=== PATIENT | male | born 1955 | race Caucasian/White ===

== ENCOUNTER 2017-04-19 17:28 | Observation (INO) ==
[2017-04-19] MEDS ORDERED: Ondansetron 4 MG/2 ML VIAL IVP ONE (17:47)
[2017-04-19] MEDS ORDERED: 0.9 % Sodium Chloride 1,000 ML IVC ONE ×3 (17:47→21:43)
[2017-04-19] MEDS ORDERED: Ipratropium/Albuterol Neb 3 ML IH ONE (18:01)
--- NOTE | 2017-04-19 18:05 | Emergency Department Note ---
START Narrative - START START: I examined this patient and my medical decision-making was reviewed with the SUBSURFACE AUGMENTEE OPERATOR/PA/Advanced Practice Nurse/Resident Physician. I agree with the documented findings, disposition and treatment plan as described except to the extent set forth below. ED attending: Patient's emergency medicine resident Dr. Stone. Please see copy of this note for H&P evaluation and management and ED disposition. We both had independent [id number] time in contact with this patient. Briefly: 61-year-old male history of COPD presents with 4 days of nausea vomiting diarrhea fever unclear if he took his temperature at home. Had herniorrhaphy done by Dr. Mcgraw March 30. Abdomen is surgically benign surgical scars are well-healed and nontender. Dry oral mucosa coughing up thick white sputum that he said was occasionally brown and has decreased breath sounds on the left. Patient getting a chest x-ray EKG doing screening labs IV fluids and antibiotics. Disposition pending.
[2017-04-19 18:28] LABS: Basophils # 0.1 K/mcL (0.0-0.2); Basophils % 0.4 %; Eosinophils % 0.3 %; Hematocrit 45.7 % (37.5-50.1); Hemoglobin 15.7 g/dL (12.9-16.9); Immature Granulocytes % 0.6 % (0-4); Immature Platelets 2.2 % (1.1-6.1); Lymphocytes # 1.7 K/mcL (0.6-4.6); Lymphocytes % 12.1 %; Mean Corpuscular HGB Conc 34.4 g/dL (31.6-35.5); Mean Corpuscular Hemoglobin 30.4 pg (28.0-33.3); Mean Corpuscular Volume 88.4 fL (83.0-100.0); Mean Platelet Volume 9.7 fL (9.4-12.4); Monocytes # 0.6 K/mcL (0.0-1.3); Monocytes % 3.9 %; Neutrophils # 11.6 K/mcL (1.6-8.9); Platelet Count 278 K/mcL (140-400); Red Blood Count 5.17 M/mcL (4.19-5.50); Red Cell Distribution Width 13.2 % (11.5-14.5); Segmented Neutrophils % 82.7 %
--- NOTE | 2017-04-19 18:32 | Emergency Department Note ---
Disposition Clinical Impression: Incarcerated right inguinal hernia, Nausea vomiting and diarrhea, Thrombosed hemorrhoids Abdominal pain Qualifiers: Abdominal location: lower abdomen, unspecified Qualified Code(s): R10.30 - Lower abdominal pain, unspecified Disposition: Admitted As Inpatient Condition: Serious [facility]: [facility]Primary Care Provider[facility] - Time of Disposition: 21:03 Nausea/Vomiting/Diarrhea HPI - General Chief complaint: ED Nausea/Vomiting/Diarrhea Stated complaint: NVD x 4 days Time Seen by Provider: 04/19/17 17:41 Source: patient Limitations: no limitations Nursing Notes Reviewed: Yes Vital Signs Reviewed: Yes - History of Present Illness HPI Narrative: Patient 61-year-old male who comes in after 4 days of nausea vomiting diarrhea and abdominal pain. Patient states pain is 9/10 in his lower abdomen sharp and constant. Patient denies any radiation of pain symptoms to his groin. Patient states he has of blood in his stool but he has hemorrhoids. Patient states the bleeding is slightly different. No bloody emesis Patient has a history of bilateral inguinal hernia repair 03/28/[address] Mcgraw. Patient states he contacted Dr. Mcgraw's office today and was directed to come to the ED. - Related Data Home Medications Medication Instructions Recorded Confirmed Atenolol [Tenormin] 50 mg PO DAILY 02/03/16 04/02/17 Furosemide [Lasix] 20 mg PO DAILY 02/03/16 04/02/17 Levothyroxine [Synthroid] 25 mcg PO 0630 02/03/16 04/02/17 Lisinopril [Zestril] 20 mg PO DAILY 02/03/16 04/02/17 Melatonin 9 mg PO HS PRN 02/03/16 04/02/17 NIFEdipine [Afeditab Cr] 60 mg PO DAILY 02/03/16 04/02/17 Gabapentin [Neurontin] 400 mg PO TID 04/02/17 04/02/17 Allergies Allergy/AdvReac Type Severity Reaction Status Date / Time No Known Allergies Allergy Verified 04/19/17 17:30 All systems ED: reviewed and negative except as stated. Review of Systems: As Per HPI Constitutional: Reports: fever (Subjective). Denies: chills ENT ED: Denies: congestion Cardiovascular: Denies: chest pain, palpitations Respiratory: Denies: cough, dyspnea, wheezes Gastrointestinal: Reports: abdominal pain, nausea, vomiting, diarrhea Genitourinary: Denies: urgency, dysuria, frequency Musculoskeletal: Denies: back pain, neck pain Integumentary: Denies: rash Endocrine: Reports: fatigue Past Medical History - Past Medical History Attestation: Yes The following information was validated with the patient. Source: patient Medical history: Reports: cirrhosis, CHF, COPD, fibromyalgia, hepatitis, hyperlipidemia, hypertension, kidney stones, liver disease, seizures Surgical history: Reports: cholecystectomy Psychiatric history: Reports: bipolar, previous psychiatric hospitalization, other - Social History Smoking Status: Current every day smoker Smokeless Tobacco Status: No Alcohol use: Reports: none Drug use: Reports: opiates, marijuana, other Physical Exam Vital Signs Temperature 98.5 F 04/19/17 17:30 Pulse Rate 77 04/19/17 17:30 Respiratory Rate 20 04/19/17 17:30 Blood Pressure 191/107 04/19/17 17:30 O2 Sat by Pulse Oximetry 100 04/19/17 17:30 Temperature 98.5 F 04/19/17 17:30 Pulse Rate 62 04/19/17 19:48 Respiratory Rate 18 04/19/17 19:48 Blood Pressure 175/100 04/19/17 19:48 O2 Sat by Pulse Oximetry 99 04/19/17 19:48 Oxygen Delivery Oxygen Delivery Room Air Patient 61-year-old male who is alert and oriented 3 and in no acute distress. Patient looks uncomfortable secondary to abdominal discomfort. Patient is currently afebrile here but is hypertensive at 191/107. - General Limitations: no limitations General appearance: alert - Head Head exam: atraumatic, normocephalic, normal inspection - Eye Eye exam: Present: normal appearance, PERRL, EOMI - ENT ENT exam: normal exam, mucous membranes dry - Neck Neck exam: Present: normal inspection, full ROM, trachea midline - Chest Chest inspection: Present: normal inspection, symmetric chest wall rise - Respiratory Respiratory exam: Present: other (rales right side lower lung field). Absent: wheezes - Cardiovascular Cardiovascular exam: Present: regular rate, normal rhythm, normal heart sounds - Abdominal Exam Abdominal exam: Present: soft, tenderness, normal bowel sounds. Absent: distention, guarding, rebound, rigidity Abdominal tenderness: Present: RLQ, LLQ, suprapubic - Rectal Exam Rectal exam: Present: heme (+) stool, hemorrhoids (Thrombosed), tenderness - Extremities Exam Extremities exam: Present: normal inspection, full ROM, normal capillary refill. Absent: tenderness, pedal edema, joint swelling, calf tenderness Course - Consultations Consultation #1: Dr. Hennessy of general surgery was consulted and appraise the patient's condition. He states he will look at the CT scan himself and come in and see the patient here in the ED. Time: 08:00 Consultation #2: Dr. Hennessy of Gen. surgery's accepted patient for admission Time: 20:53 Vital Signs Temperature 98.5 F 04/19/17 17:30 Pulse Rate 77 04/19/17 17:30 Respiratory Rate 20 04/19/17 17:30 Blood Pressure 191/107 04/19/17 17:30 O2 Sat by Pulse Oximetry 100 04/19/17 17:30 Temperature 98.5 F 04/19/17 17:30 Pulse Rate 77 04/19/17 17:30 Respiratory Rate 20 04/19/17 17:30 Blood Pressure 191/107 04/19/17 17:30 O2 Sat by Pulse Oximetry 99 04/19/17 17:39 Oxygen Delivery Oxygen Delivery Room Air Nausea/Vomiting/Diarrhea - MDM Narrative Medical decision making narrative: Patient presents with abdominal pain, nausea vomiting diarrhea with hx of bilateral inguinal hernia repair [address] Mcgraw general surgery. Patient's workup labs showed elevated white count with left shift and a KI. Patient's urine appears dirty. Possible UTI. While awaiting CT scan abdomen and pelvis patient was given pain medication. The patient's patient's symptoms were alleviated some. Patient's pain medications did re-dose from 50 g of fentanyl to 1 mg of Dilaudid. Patient's CT abdomen shows: Chest X-Ray 04/19/17 17:47 IMPRESSION: No acute cardiopulmonary findings. D/ / Kirill Simmons MD / Kirill Simmons MD Interpreting Provider: Kirill Simmons MD Abdomen/Pelvis CT 04/19/17 19:01 IMPRESSION: The base of the cecum appears distorted and partially located within a right inguinal hernia; there are some adjacent inflammatory changes. Correlation for entrapment is recommended. Cirrhotic morphology of the liver as well as abdominal and pelvic ascites. D/ / Lissa Ricks Cha, MD / Lissa Ricks Cha, MD Interpreting Provider: Lissa Ricks Cha, MD Patient has thrombosed hemorrhoids on rectal exam and Hemoccult positive stool. Most likely secondary to hemorrhoids. Gen. surgery was consulted and currently awaiting the recommendations from Dr. Hennessy of general surgery. Dr. Hennessy of Gen. surgery's accepted patient for admission this 80 will monitor patient in serial abdominal exams. Lactic acid is been ordered and the patient will receive more IV hydration. Patient is to be kept nothing by mouth. - Lab Data Lab results reviewed: Yes I reviewed the patient's lab results. Lab results narrative: Short CBC 04/19/17 Range/Units 18:14 WBC 14.0 H (4.3-11.1) K/mcL Hgb 15.7 (12.9-16.9) g/dL Hct 45.7 (37.5-50.1) % Plt Count 278 (140-400) K/mcL Neutrophils # 11.6 H (1.6-8.9) K/mcL BMP 04/19/17 Range/Units 18:14 Sodium 144 (136-145) mEq/L Potassium 3.8 (3.5-4.5) mEq/L Chloride 103 (98-109) mEq/L Carbon Dioxide 28 (19-29) mEq/L BUN 21 (8-26) mg/dL Creatinine 1.41 H (0.72-1.25) mg/dL Glucose 154 H (70-99) mg/dL Calcium 11.2 H (8.6-10.8) mg/dL Cardiac Enzymes 04/19/17 Range/Units 18:14 Troponin I 0.00 (0-0.03) ng/mL Urine 04/19/17 Range/Units 17:20 Urine Color Dark Yellow (Yellow) Urine Clarity Cloudy A (Clear) Urine pH 7.5 (5.0-8.0) pH Units Ur Specific [place] 1.029 H (1.010-1.025) Urine Protein 100 H (Neg-Trace) mg/dL Urine Glucose (UA) Normal (Normal) mg/dL - Radiology Data Radiology results reviewed: Yes I reviewed the patient's radiology results. Chest X-Ray 04/19/17 17:47 IMPRESSION: No acute cardiopulmonary findings. D/ / Kirill Simmons MD / Kirill Simmons MD Interpreting Provider: Kirill Simmons MD Abdomen/Pelvis CT 04/19/17 19:01
[2017-04-19 18:42] LABS: BUN/Creatinine Ratio 15 (6-26); Blood Urea Nitrogen 21 mg/dL (8-26); Calcium 11.2 mg/dL (8.6-10.8); Carbon Dioxide 28 mEq/L (19-29); Chloride 103 mEq/L (98-109); Glucose 154 mg/dL (70-99); Lipase 15 Units/L (8-78); Osmolality,Calculated 304 (280-300); Potassium 3.8 mEq/L (3.5-4.5); Sodium 144 mEq/L (136-145); eGFR For African Americans > 60 (> 60); eGFR For Non-African Americans 51 (> 60)
[2017-04-19 18:52] LABS: Bilirubin,Urine Small (Negative); Blood,Urine Negative (Negative); Clarity,Urine Cloudy (Clear); Color,Urine Dark Yellow (Yellow); Glucose,Urine (UA) Normal (Normal); Ketones,Urine 15 mg/dL (Negative); Leukocyte Esterase,Urine Small (Negative); Nitrite,Urine Negative (Negative); PH,Urine 7.5 pH Units (5.0-8.0); Protein,Urine 100 mg/dL (Neg-Trace); Specific Gravity,Urine 1.029 (1.010-1.025); Urobilinogen,Urine Normal (Normal)
[2017-04-19 18:54] LABS: Squamous Epithelial Cell,Urine Many per lpf (None-Few)
[2017-04-19] MEDS ORDERED: *HR* FentaNYL (PF) 100 MCG/2 ML VIAL IVP ONE ×2 (19:02→19:04)
[2017-04-19] MEDS ORDERED: Ondansetron 4 MG/2 ML VIAL IVP STA (19:04)
[2017-04-19 19:11] LABS: Hyaline Casts,Urine Many per lpf (None-Few); Mucus,Urine Many (Few)
[2017-04-19 19:12] LABS: Bacteria,Urine Moderate per hpf (None-Few)
[2017-04-19] MEDS ORDERED: *HR* HYDROmorphone (PF) 1 MG/ML SYRINGE IVP ONE ×2 (20:10→21:02)
[2017-04-19] MEDS ORDERED: *HR* HYDROmorphone (PF) 1 MG/ML SYRINGE IVP PRN (21:43)
[2017-04-19] MEDS ORDERED: Ondansetron 4 MG/2 ML VIAL IVP PRN (21:43)
[2017-04-19] MEDS ORDERED: 0.9 % Sodium Chloride 1,000 ML IVC SCH (21:45)
--- NOTE | 2017-04-19 22:00 | General Surg History&Physical ---
Date of Encounter: 04/19/17 Time of Encounter: 21:57 Assessment and Plan (1) Nausea vomiting and diarrhea Current Visit: Yes Status: Acute 61M s/p bilateral open inguinal hernia repair with abdominal pain associated nausea and vomiting; no evidence of obstruction or ischemia or inflammatory changes; unlikely has actue surgical problem - NPO: initial diet pending exam in AM - IVF - pain control; - dvt proph - vitals/I&os q4 - serial abdominal exams The assessment and plan as outlined above was discussed with the patient and/or family members who expressed understanding and agreement. All questions were answered. (2) Dehydration Current Visit: Yes Status: Acute likely due to vomiting and poor PO intake; - NPO IVF' serial exams repeat labs in AM The assessment and plan as outlined above was discussed with the patient and/or family members who expressed understanding and agreement. All questions were answered. (3) Acute kidney failure Current Visit: Yes Status: Acute see above The assessment and plan as outlined above was discussed with the patient and/or family members who expressed understanding and agreement. All questions were answered. Qualifiers: Acute renal failure type: unspecified Qualified Code(s): N17.9 - Acute kidney failure, unspecified History of Present Illness Chief complaint: abdominal pain, vomiting HPI: Mr. uGstafson is a 61 year old male with 3 days of worsening abdominal pain. The pain is suprapubic with associated nausea and vomiting, non bloody, non bilious. No reports of fevers or chills. The patient states the pain is non radiating. With no identifiable alleviating or exacerbating factors. Due to the severity of the abdominal pain, the patient was advised to come to the ED for evaluation. Furthermore, the patient states he also had blood stools. He states that he does have hemorrhoids. Of note the patient is approximately 8 days post op from bilateral open inguinal hernia repairs Past Med Surg Social Fam HX - Past Medical History Medical history: cirrhosis, CHF, COPD, fibromyalgia, hepatitis, hyperlipidemia, hypertension, kidney stones, liver disease, seizures Psychiatric history: bipolar, previous psychiatric hospitalization, other - Past Surgical History Surgical History: cholecystectomy - Social History Smoking Status: Current every day smoker Smokeless Tobacco Status: No Alcohol use: none Drug use: opiates, marijuana, other - Family History Father Living Status: Still Living Hx Family Endocrine Disorder: Yes (DM) Medications and Allergies Atenolol [Tenormin] 50 mg PO DAILY 02/03/16 [History] Furosemide [Lasix] 20 mg PO DAILY 02/03/16 [History] Levothyroxine [[place]th[place] [address]/03/16 [History] Lisinopril [Zestril] 20 mg PO DAILY 02/03/16 [History] Melatonin 9 mg PO HS PRN 02/03/16 [History] NIFEdipine [Afeditab Cr] 60 mg PO DAILY 02/03/16 [History] Gabapentin [Neurontin] 400 mg PO TID 04/02/17 [History] 3 Allergy/AdvReac Type Severity Reaction Status Date / Time No Known Allergies Allergy Verified 04/19/17 17:30 Review of Systems All systems PM: A 10-system review of systems was performed and is negative for pertinent findings except as documented above in the HPI. General Surgery Exam Initial Vital Signs Temp Pulse Resp BP Pulse Ox 98.5 F 77 20 191/107 100 04/19/17 17:30 04/19/17 17:30 04/19/17 17:30 04/19/17 17:30 04/19/17 17:30 - General physical appearance well developed, well nourished, no distress - Eyes other (no slceral icterus) - ENT dry mucosa, atraumatic, normocephalic - Respiratory normal expansion, normal respiratory effort, clear to auscultation - Cardiovascular Cardiovascular exam: Present: RRR - Abdomen Abdomen general surgery: Present: soft, tender (non distended, non peritoneal; minimally tender suprapubically, or any other quadrant) Hernia: Present: none (non inguinal, umbilical hernias appreciated) - Incision Incision: Present: clean and dry, intact - Genitourinary Present: normal penis with no external lesions - Integumentary Integumentary general surgery: Present: warm and dry - Neurologic Present: CN 2-12 grossly intact - Psychiatric Psychiatric general surgery: Present: A&Ox3 Results - Labs 04/19/17 18:14 04/19/17 18:14 Abnormal lab results WBC 14.0 K/mcL (4.3-11.1) H 04/19/17 18:14 Neutrophils # 11.6 K/mcL (1.6-8.9) H 04/19/17 18:14 Creatinine 1.41 mg/dL (0.72-1.25) H 04/19/17 18:14 Est GFR (Non-Af Amer) 51 (> 60) L 04/19/17 18:14 Glucose 154 mg/dL (70-99) H 04/19/17 18:14 Calculated Osmolality 304 (280-300) H 04/19/17 18:14 Calcium 11.2 mg/dL (8.6-10.8) H 04/19/17 18:14 Urine Clarity Cloudy (Clear) A 04/19/17 17:20 Ur Specific [place] 1.029 (1.010-1.025) H 04/19/17 17:20 Urine Protein 100 mg/dL (Neg-Trace) H 04/19/17 17:20 Urine Ketones 15 mg/dL (Negative) H 04/19/17 17:20 Urine Bilirubin Small (Negative) H 04/19/17 17:20 Ur Leukocyte Esterase Small (Negative) H 04/19/17 17:20 Urine Microscopic RBC 3-5 per hpf (0-3) H 04/19/17 17:20 Urine Microscopic WBC 3-5 per hpf (0-3) H 04/19/17 17:20 Ur Squamous Epith Cells Many per lpf (None-Few) H 04/19/17 17:20 Urine Bacteria Moderate per hpf (None-Few) H 04/19/17 17:20 Hyaline Casts Many per lpf (None-Few) H 04/19/17 17:20 Urine Mucus Many (Few) H 04/19/17 17:20 Ur Culture Indicated? YES (NO) A 04/19/17 17:20 Stool Occult Blood Positive (Negative) A 04/19/17 Unknown All other labs normal. - Imaging CT scan - abdomen: report reviewed, image reviewed CT scan - pelvis: report reviewed, image reviewed (non contrast; no bowel dilatation; no evidence of significant inflammatory changes; no pneumotosis; no sign of obstruction; concern about entrapment of the cecum)
[2017-04-19 23:07] LABS: Magnesium 2.2 mg/dL (1.6-2.6)
[2017-04-20 04:47] LABS: Basophils % 0.3 %; Eosinophils # 0.1 K/mcL (0.0-0.6); Eosinophils % 0.8 %; Hematocrit 37.8 % (37.5-50.1); Immature Granulocytes % 0.7 % (0-4); Immature Platelets 2.5 % (1.1-6.1); Lymphocytes # 2.1 K/mcL (0.6-4.6); Lymphocytes % 15.7 %; Mean Corpuscular HGB Conc 33.9 g/dL (31.6-35.5); Mean Corpuscular Volume 91.5 fL (83.0-100.0); Mean Platelet Volume 10.2 fL (9.4-12.4); Monocytes # 0.8 K/mcL (0.0-1.3); Monocytes % 5.9 %; Neutrophils # 10.1 K/mcL (1.6-8.9); Platelet Count 178 K/mcL (140-400); Red Blood Count 4.13 M/mcL (4.19-5.50); Red Cell Distribution Width 13.4 % (11.5-14.5); Segmented Neutrophils % 76.6 %
[2017-04-20 04:48] LABS: Hemoglobin 12.8 g/dL (12.9-16.9)
[2017-04-20] MEDS ORDERED: *HR* Enoxaparin 40 MG/0.4 ML SYRINGE SQ SCH (06:00)
--- NOTE | 2017-04-20 06:08 | General Surgery Progress Note ---
Date of Encounter: 04/20/17 Time of Encounter: 06:05 - Assessment and Plan (1) Nausea vomiting and diarrhea Current Visit: Yes Status: Acute 61M s/p open b/l IHR admitted with nausea, vomiting; no evidence of obstruction or ischemia on imaging; benign abdomen on exam - cont pain control; transition to PO once diet initiated - start CLD this AM; advance as tolerated to reg diet - activity as tolerated - cont dvt prophylaxis with lovenox - follow up rest of AM labs - plan for d/c at lunch today (2) Dehydration Current Visit: Yes Status: Acute cont IVF; decrease once taking appropriate PO (3) Acute kidney failure Current Visit: Yes Status: Acute see above Qualifiers: Acute renal failure type: unspecified Qualified Code(s): N17.9 - Acute kidney failure, unspecified Subjective Patient reports: no new complaints, feels better (no acute events overnight; pain controlled; voiding on his own), pain is less Objective Vital Signs - Last 8 Hours Temp Pulse Resp BP Pulse Ox 04/20/17 04:14 98.1 F 77 15 179/88 97 04/19/17 22:44 99.3 F 75 16 158/89 97 04/19/17 22:08 18 184/100 Intake and Output 04/19/17 04/19/17 04/20/17 15:59 23:59 07:59 Intake Total 1000 / 1000 0 / 0 Output Total 200 / 200 Balance 1000 / 1000 -200 / -200 Intake: IV Fluids 1000 / 1000 0.9 % Sodium Chloride 1,000 ML 1000 / 1000 @ 3750 mls/hr IVC .Q16M ONE Rx# :[id number] Oral 0 / 0 Output: Urine 200 / 200 Other: Weight 94.801 kg 94.7 kg Blood Glucose* 111 Patient Weight 04/20/17 23:59 Weight 94.7 kg - General physical appearance well developed, well nourished, no distress - Respiratory normal expansion, normal respiratory effort, clear to auscultation - Cardiovascular Cardiovascular exam: Present: RRR - Abdomen Abdomen: Present: soft, non tender (non distended; non peritoneal) Hernia: none - Incision Incision: Present: clean and dry, intact - Neurologic CN 2-12 grossly intact - Psychiatric oriented to time, oriented to person, oriented to place - Labs 04/20/17 03:37 04/19/17 18:14 Consult Discharge Plan - Plan [facility]errals: [facility] [Primary Care Provider] -
[2017-04-20] MEDS ORDERED: D5% in 0.45% NACL w KCl 20 MEQ/1,000 ML MLS IVC SCH (07:45)
[2017-04-20] MEDS ORDERED: Ibuprofen 600 MG TABLET PO PRN (08:40)
[2017-04-20] MEDS ORDERED: Acetaminophen 325 MG TABLET PO PRN (08:40)
[2017-04-20 08:48] LABS: BUN/Creatinine Ratio 16 (6-26); Blood Urea Nitrogen 18 mg/dL (8-26); Carbon Dioxide 25 mEq/L (19-29); Chloride 113 mEq/L (98-109); Glucose 119 mg/dL (70-99); Osmolality,Calculated 301 (280-300); Potassium 3.7 mEq/L (3.5-4.5); Sodium 144 mEq/L (136-145); eGFR For African Americans > 60 (> 60); eGFR For Non-African Americans > 60 (> 60)
[2017-04-20 08:49] LABS: Calcium 8.9 mg/dL (8.6-10.8)
[2017-04-20] MEDS ORDERED: Gabapentin 400 MG CAPSULE PO SCH (09:00)
[2017-04-20] MEDS ORDERED: Lisinopril 20 MG TABLET PO SCH (09:00)
[2017-04-20] MEDS ORDERED: NIFEdipine XL (24 HR) 60 MG TAB.ER.24 PO SCH (09:00)
[2017-04-20] MEDS ORDERED: Furosemide 20 MG TABLET PO SCH (09:00)
--- NOTE | 2017-04-20 11:35 | Discharge Summary ---
<Mandi Landis - Last Filed: 04/20/17 13:24> Date of Encounter: 04/20/17 Time of Encounter: 07:00 - Discharge Diagnosis (1) Abdominal pain Priority: Primary Status: Acute Qualifiers: Abdominal location: lower abdomen, unspecified Qualified Code(s): R10.30 - Lower abdominal pain, unspecified (2) Nausea vomiting and diarrhea Priority: Secondary Status: Acute (3) Dehydration Priority: Secondary Status: Acute (4) DVT prophylaxis Priority: Secondary Status: Acute (5) Acute kidney failure Priority: Secondary Status: Resolved Qualifiers: Acute renal failure type: unspecified Qualified Code(s): N17.9 - Acute kidney failure, unspecified - Discharge Medications Prescriptions: Acetaminophen [Tylenol] 650 mg PO Q6HR PRN #14 tablet PRN Reason: pain Ondansetron HCl [Zofran] 4 mg PO Q4-6H PRN #10 tablet PRN Reason: Nausea And Vomiting Home Medications: Atenolol [Tenormin] 50 mg PO DAILY 02/03/16 [History] Furosemide [Lasix] 20 mg PO DAILY 02/03/16 [History] Levothyroxine [Synthroid] 25 mcg PO 0630 02/03/16 [History] Lisinopril [Zestril] 20 mg PO DAILY 02/03/16 [History] Melatonin 9 mg PO HS PRN 02/03/16 [History] NIFEdipine [Afeditab Cr] 60 mg PO DAILY 02/03/16 [History] Gabapentin [Neurontin] 400 mg PO TID 04/02/17 [History] Acetaminophen [Tylenol] 650 mg PO Q6HR PRN #14 tablet 04/20/17 [Rx] Ondansetron HCl [Zofran] 4 mg PO Q4-6H PRN #10 tablet 04/20/17 [Rx] Allergies/Adverse Reactions: 3 Allergy/AdvReac Type Severity Reaction Status Date / Time No Known Allergies Allergy Verified 04/19/17 17:30 General Surgery Exam Initial Vital Signs Temp Pulse Resp BP Pulse Ox 98.5 F 77 20 191/107 100 04/19/17 17:30 04/19/17 17:30 04/19/17 17:30 04/19/17 17:30 04/19/17 17:30 - Additional Findings Constitutional: Alert, in no acute distress, well nourished, well developed. Head: Normocephalic, atraumatic, normal contour and symmetric, no masses, lesions or scars Heart: Normal, regular rate and rhythm, no murmurs Lungs: Clear to auscultation, no wheezes, rales, or rhonchi Abdomen: mild diffuse tendernes with palpation, inguinal hernia incisions well approximated and healing well without signs of infection, Soft, nondistended, , and no masses palpable, bowel sounds present and normal, no guarding or rigidity. Extremities: No clubbing, cyanosis, or edema, radial pulse +2/4, capillary refill <2sec. Skin: Skin warm and dry, no lesions, no rashes, no jaundice Neurologic: Cranial nerves II through XII grossly intact, no focal deficits, strength within normal limits in all extremities Psych: Cooperative with exam, good eye contact, cognitive function intact, judgment good insight good, speech clear, thought process logical, and goal directed Date of admission: 04/19/17 21:08 [facility] - Patient Status Disposition: Home, Self-Care Condition: Serious Functional capacity at discharge: independent ambulation Overall status at discharge: patient is progressing back to baseline - Discharge Instructions Instructions: Acute Abdominal Pain (DC) Follow Up With: [facility] [Primary Care Provider] - Additional Instructions: 1. Return to the ED if symptoms or new symptoms arise. 2. Follow up with her primary care physician in 1 to 2 weeks if symptoms do not completely resolve. 3. Continue to hydrate with 8oz eight times a day especially if vomiting or diarrhea returns. 4. Can eat normal food but would avoid fatty foods for the next week. - Diet and Activity Activity: increase activity as tolerated Diet: advance to your usual diet (slowly advance, avoid fatty foods for the next week. ) - Hospital Course Hospital course: Mr. Gustafson is a 61 year old male who had a recent bilateral inguinal hernia repair 03/28/[address] Mcgraw and presented with nausea, vomiting, diarrhea, and diffuse abdominal pain for 4 days and was admitted to the hospital for abdominal work up, NICHELLE, and dehydration. CT showed base of the cecum appears distorted and partially located within a right inguinal hernia; there are some adjacent inflammatory changes. Patient had thrombosed hemorrhoids on rectal exam and Hemoccult positive stool. Patient was admitted to the hospital and given IV fluids, antiemetic, pain medications, and NPO diet. Patient's vitals remained stable and afebrile throughout hospital stay. Patient's BP was initially elevated but decreased with pain medications and morning BP medications. Morning of discharge, Patient's pain minimal without pain medications and had no n/v after advancing diet back to regular. Creatinine decreased significantly and NICHELLE resolved. Patient was discharged home with Zofran and Tylenol and instructed to return to the ED if symptoms return or worsen and to f/u with primary care physician in 1-2 weeks if symptoms do not resolve completely. - Time Spent with Patient Total time spent providing and/or coordinating discharge services: Labs on day of discharge: Labs from last 24 hours 04/20/17 04/20/17 04/20/17 08:09 05:43 03:37 WBC 13.2 H RBC 4.13 L Hgb 12.8 L D Hct 37.8 MCV 91.5 MCH 31.0 MCHC 33.9 RDW 13.4 Plt Count 178 MPV 10.2 Immature Gran % 0.7 Seg Neutrophils % 76.6 Lymphocytes % 15.7 Monocytes % 5.9 Eosinophils % 0.8 Basophils % 0.3 Neutrophils # 10.1 H Lymphocytes # 2.1 Monocytes # 0.8 Eosinophils # 0.1 Basophils # 0.0 Immature Plt Fraction 2.5 Sodium 144 Potassium 3.7 Chloride 113 H Carbon Dioxide 25 BUN 18 Creatinine 1.16 Est GFR ( Amer) > 60 Est GFR (Non-Af Amer) > 60 BUN/Creatinine Ratio 16 Glucose 119 H POC Glucose 111 H Calculated Osmolality 301 H Calcium 8.9 D Stool Occult Blood 04/19/17 Unknown WBC RBC Hgb Hct MCV MCH MCHC RDW Plt Count MPV Immature Gran % Seg Neutrophils % Lymphocytes % Monocytes % Eosinophils % Basophils % Neutrophils # Lymphocytes # Monocytes # Eosinophils # Basophils # Immature Plt Fraction Sodium Potassium Chloride Carbon Dioxide BUN Creatinine Est GFR ( Amer) Est GFR (Non-Af Amer) BUN/Creatinine Ratio Glucose POC Glucose Calculated Osmolality Calcium Stool Occult Blood Positive A <Navarro Hennessy - Last Filed: 04/20/17 17:05> Date of Encounter: 04/20/17 - Discharge Diagnosis (1) Nausea vomiting and diarrhea Status: Acute Comments: no episodes of nausea and vomiting while inpatient (2) Dehydration Status: Acute Comments: resolved while inpatient (3) Acute kidney failure Status: Resolved Comments: resolved while inpatient Qualifiers: Acute renal failure type: unspecified Qualified Code(s): N17.9 - Acute kidney failure, unspecified General Surgery Exam Initial Vital Signs Temp Pulse Resp BP Pulse Ox 98.5 F 77 20 191/107 100 04/19/17 17:30 10 17:30 04/19/17 17:30 04/19/17 17:30 04/19/17 17:30 - General physical appearance well developed, well nourished, no distress - Eyes other (no scleral icterus), normal ocular movement - ENT normocephalic - Neck no lymphadectomy - Respiratory normal expansion, normal respiratory effort, clear to auscultation - Cardiovascular Cardiovascular exam: Present: RRR - Abdomen Abdomen general surgery: Present: soft, non tender (non distended; non peritoneal) Hernia: Present: none - Incision Incision: Present: clean and dry, intact - Genitourinary Present: normal penis with no external lesions, testicles present - Integumentary Integumentary general surgery: Present: warm and dry - Neurologic Present: CN 2-12 grossly intact - Musculoskeletal Present: other (FROM in UE/LE B/L) - Psychiatric Psychiatric general surgery: Present: A&Ox3 Date of admission: 04/19/17 21:08 [facility] care physician: [facility] Consults: none Discharging clinician: Navarro Hennessy Anticipated date of discharge: 04/20/17 - Hospital Course Hospital course: Mr. Gustafson is a 61 year old male who is approximately 3 weeks s/p open bilateral inguinal hernia repair who presented with abdominal pain, distension, nausea and vomiting; No fevers recorded. He was brought to the hospital and a CT scan was done which did not show obstruction, ischemia, abscess or evidence of pneumatosis. There was a concern for entrapment of the cecum on CT scan, but his abdominal exam was non peritoneal and otherwise normal. He did have NICHELLE upon admisson. He was admitted for supportive care. He was kept NPO overnight and started on a regular diet the following morning. He tolerated his diet, was voiding and ambulating. His NICHELLE did resolve the following morning as evidenced by the drop in his creatinine. His pain was controlled with PO pain meds. He subsequently met discharge criteria was discharged home. Patient was discharged home with Zofran and Tylenol and instructed to return to the ED if symptoms return or worsen and to f/u with Dr. Mcgraw or his PCP should he have recurrence of his symptoms. Time spent discussing smoking cessation with patient: 3 to 10 minutes - Time Spent with Patient Total time spent providing and/or coordinating discharge services: Labs on day of discharge: Labs from last 24 hours 04/20/17 04/20/17 04/20/17 08:09 05:43 03:37 WBC 13.2 H RBC 4.13 L Hgb 12.8 L D Hct 37.8 MCV 91.5 MCH 31.0 MCHC 33.9 RDW 13.4 Plt Count 178 MPV 10.2 Immature Gran % 0.7 Seg Neutrophils % 76.6 Lymphocytes % 15.7 Monocytes % 5.9 Eosinophils % 0.8 Basophils % 0.3 Neutrophils # 10.1 H Lymphocytes # 2.1 Monocytes # 0.8 Eosinophils # 0.1 Basophils # 0.0 Immature Plt Fraction 2.5 Sodium 144 Potassium 3.7 Chloride 113 H Carbon Dioxide 25 BUN 18 Creatinine 1.16 Est GFR ( Amer) > 60 Est GFR (Non-Af Amer) > 60 BUN/Creatinine Ratio 16 Glucose 119 H POC Glucose 111 H Calculated Osmolality 301 H Calcium 8.9 D Stool Occult Blood 04/19/17 Unknown WBC RBC Hgb Hct MCV MCH MCHC RDW Plt Count MPV Immature Gran % Seg Neutrophils % Lymphocytes % Monocytes % Eosinophils % Basophils % Neutrophils # Lymphocytes # Monocytes # Eosinophils # Basophils # Immature Plt Fraction Sodium Potassium Chloride Carbon Dioxide BUN Creatinine Est GFR ( Amer) Est GFR (Non-Af Amer) BUN/Creatinine Ratio Glucose POC Glucose Calculated Osmolality Calcium Stool Occult Blood Positive A - Impressions 61M admitted for pain control and dehydration. All problems addressed and resolved prior to discharge - Attending Attestation I have personally seen and examined the patient. I have reviewed pertinent labs , imaging, progress notes, including this one. I agree with the above assessment and plan and discharge summary
[2017-04-20 13:25] VITALS: BP 159/84
[2017-04-21] MEDS ORDERED: Levothyroxine 25 MCG TABLET PO SCH (06:30)
== END 2017-04-20 14:43 | disposition home or self-care (01) | DRG 469 ==
LOC: EMEROO 17:28 → 3ANU 21:08 → INTOOBSV 21:08 → 3ANU 22:21
PROVIDERS: ADMIT Surgery; ATTEND Surgery

== ENCOUNTER 2017-04-21 14:10 | Observation (INO) ==
[2017-04-21] MEDS ORDERED: *HR* HYDROmorphone (PF) 1 MG/ML SYRINGE IVP ONE (14:32)
[2017-04-21] MEDS ORDERED: Ondansetron 4 MG/2 ML VIAL IVP ONE (14:32)
[2017-04-21] MEDS ORDERED: 0.9 % Sodium Chloride 1,000 ML IVC ONE (14:32)
[2017-04-21] MEDS ORDERED: *HR* Promethazine 25 MG/ML VIAL IVP ONE (14:40)
--- NOTE | 2017-04-21 14:42 | Emergency Department Note ---
START Narrative - START START: I examined this patient and my medical decision-making was reviewed with the emergency medicine resident. I agree with the documented findings, disposition and treatment plan as described except to the extent set forth below. Patient seen with emergency medicine resident Dr. Ascencion Whitt, Please see a copy of his note for details of the H&P, ED evaluation, management and disposition. I have independently evaluated the patient and confirmed appropriate portions of the history and physical exam. Briefly: A 61-year-old male had bilateral inguinal herniorrhaphy. Patient was noted by myself and Dr. Stone 48 hours ago at [facility]. His initial surgeon was Dr. Mcgraw. Abdominal pelvic CT without contrast at that time showed questionable cecum in the possibly strangulated in the inguinal area. Dr. Hennessy general surgeon supervisor bonding evaluated patient admitted the patient discharged yesterday returns with identical symptoms of abdominal pain and intractable nausea and vomiting. Patient has diffuse abdominal tenderness but no rebound. No distention. Trial mucosa. We consult to Dr. Hennessy. He requested abdominal pelvic CT with oral and IV contrast. Patient getting IV rehydration and analgesics anti-medics oral contrast and will then undergo CT scan. Disposition pending.
--- NOTE | 2017-04-21 14:43 | Emergency Department Note ---
Disposition Clinical Impression: Ileus Intractable nausea and vomiting Qualifiers: Vomiting type: unspecified Qualified Code(s): R11.2 - Nausea with vomiting, unspecified Disposition: Admitted As Inpatient Condition: Good Time of Disposition: 17:19 Abdominal Pain HPI - General Chief Complaint: ED Abdominal Pain Stated Complaint: abd pain Time Seen by Provider: 04/21/17 14:18 Source: patient, EMS Mode of arrival: EMS Limitations: no limitations Nursing Notes Reviewed: Yes Vital Signs Reviewed: Yes - History of Present Illness HPI Narrative: Vision presents to the ED with the chief complaint of abdominal pain and vomiting. Patient had bilateral inguinal hernia repair by Dr. Mcgraw about a week ago. Was seen and evaluated in this emergency department [address] of abdomen and pelvis showed a potential strangulate hernia. Patient was admitted to the surgical service. Patient states that they gave him pain medication and discharged home. States that since then he has had progressive worsening of his pain in his bilateral groin, slightly worse on the right. He is an intractable nausea and vomiting despite Zofran. States he had a little water this morning around 9 AM, but otherwise has had nothing to eat or drink since discharge. Said his abdominal pain is getting worse. It is a sharp, stabbing, achy pain that is worse with movement, better with nothing. States it feels similar to his previous hernia pain, only worse. No fever or chills. States that he cannot take the pain anymore. Pain Scale: 9 - Related Data Home Medications Medication Instructions Recorded Confirmed Atenolol [Tenormin] 50 mg PO DAILY 02/03/16 04/19/17 Furosemide [Lasix] 20 mg PO DAILY 02/03/16 04/19/17 Levothyroxine [Synthroid] 25 mcg PO 0630 02/03/16 04/19/17 Lisinopril [Zestril] 20 mg PO DAILY 02/03/16 04/19/17 Melatonin 9 mg PO HS PRN 02/03/16 04/19/17 NIFEdipine [Afeditab Cr] 60 mg PO DAILY 02/03/16 04/19/17 Gabapentin [Neurontin] 400 mg PO TID 04/02/17 04/19/17 Previous Rx's Medication Instructions Recorded Acetaminophen [Tylenol] 650 mg PO Q6HR PRN #14 tablet 04/20/17 Ondansetron HCl [Zofran] 4 mg PO Q4-6H PRN #10 tablet 04/20/17 Allergies Allergy/AdvReac Type Severity Reaction Status Date / Time No Known Allergies Allergy Verified 04/21/17 14:12 All systems ED: reviewed and negative except as stated. Constitutional: Denies: fever Cardiovascular: Denies: chest pain Respiratory: Denies: dyspnea Gastrointestinal: Reports: abdominal pain, nausea, vomiting. Denies: diarrhea, constipation, hematemesis, melena, hematochezia Genitourinary: Denies: dysuria Musculoskeletal: Denies: back pain Neurological: Denies: headache Abdominal Pain PMH - Past Medical History Medical history: Reports: cirrhosis, CHF, fibromyalgia, hepatitis, hypertension , kidney stones, liver disease Male Surgical History: Reports: cholecystectomy, herniorrhaphy Psychiatric history: Reports: bipolar, previous psychiatric hospitalization, other - Social History Smoking status: Current every day smoker Alcohol use: Reports: rarely Drug use: Reports: opiates, marijuana Physical Exam - General Limitations: no limitations General appearance: alert, in no apparent distress, in distress (anxious, in pain) - Head Head exam: atraumatic, normocephalic, normal inspection - Eye Eye exam: Present: normal appearance, PERRL, EOMI - ENT ENT exam: normal exam, normal oropharynx, mucous membranes dry - Neck Neck exam: Present: normal inspection, full ROM, trachea midline - Chest Chest inspection: Present: normal inspection, symmetric chest wall rise - Respiratory Respiratory exam: Present: normal lung sounds bilaterally - Cardiovascular Cardiovascular exam: Present: regular rate, normal rhythm, normal heart sounds - Abdominal Exam Abdominal exam: Present: soft, tenderness, guarding (Bilateral lower abdomen), diminished bowel sounds, incision (Patient's bilateral inguinal hernia incisions are clean, dry and intact), hernia (Patient did have a small periumbilical hernia that was reduced). Absent: Non-Tender, distention, rebound , rigidity - Male exam: Present: normal testicular lie, scrotal swelling Scrotal exam: testicular tenderness: bilateral - Extremities Exam Extremities exam: Present: normal inspection, full ROM. Absent: tenderness, pedal edema - Neurological Exam Neurological exam: Present: alert, oriented X3 - Psychiatric Psychiatric exam: Present: anxious - Skin Skin exam: Present: warm, dry, intact, normal color Course - Reevaluation(s) Reevaluation #1: CT reviewed. Spoke with surgery and. Will be down to evaluate patient. He recommends admission to the medicine service and Dr. Mcgraw will consult in the morning. - Consultations Consultation #1: Spoke with on-call surgeon, and he requested CT abdomen and pelvis with IV and oral contrast. States if necessary would need to place an NG tube has oral contrast would be necessary if he will need to plan for operative management. This is discussed with the patient is agreeable to plan. We will treat him with Phenergan as Zofran has not been working and if necessary we will place an NG tube. Time: 14:45 Vital Signs Temperature 98.4 F 04/21/17 14:15 Pulse Rate 73 04/21/17 14:15 Respiratory Rate 15 04/21/17 14:15 Blood Pressure 168/91 04/21/17 14:15 O2 Sat by Pulse Oximetry 100 04/21/17 14:15 Temperature 98.4 F 04/21/17 14:15 Pulse Rate 72 04/21/17 15:03 Respiratory Rate 16 04/21/17 14:35 Blood Pressure 166/99 04/21/17 15:03 O2 Sat by Pulse Oximetry 100 04/21/17 15:03 Oxygen Delivery Oxygen Delivery Room Air Abdominal Pain - Lab Data Result diagrams: 04/21/17 14:47 04/21/17 14:47 Lab Results 04/21/17 04/21/17 04/21/17 Range/Units 14:47 14:47 14:47 WBC 11.8 H (4.3-11.1) K/mcL RBC 5.25 (4.19-5.50) M/mcL Hgb 15.6 D (12.9-16.9) g/dL Hct 45.6 (37.5-50.1) % MCV 86.9 (83.0-100.0) fL MCH 29.7 (28.0-33.3) pg MCHC 34.2 (31.6-35.5) g/dL RDW 13.1 (11.5-14.5) % Plt Count 243 (140-400) K/mcL MPV 9.6 (9.4-12.4) fL Immature Gran % 0.6 (0-4) % Seg Neutrophils % 84.1 % Lymphocytes % 11.3 % Monocytes % 3.1 % Eosinophils % 0.4 % Basophils % 0.5 % Neutrophils # 9.9 H (1.6-8.9) K/mcL Lymphocytes # 1.3 (0.6-4.6) K/mcL Monocytes # 0.4 (0.0-1.3) K/mcL Eosinophils # 0.1 (0.0-0.6) K/mcL Basophils # 0.1 (0.0-0.2) K/mcL Sodium 141 (136-145) mEq/L Potassium 3.5 (3.5-4.5) mEq/L Chloride 106 (98-109) mEq/L Carbon Dioxide 21 (19-29) mEq/L BUN 16 (8-26) mg/dL Creatinine 1.27 H (0.72-1.25) mg/dL Est GFR ( Amer) > 60 (> 60) Est GFR (Non-Af Amer) 58 L (> 60) BUN/Creatinine Ratio 13 (6-26) Glucose 167 H (70-99) mg/dL Calculated Osmolality 297 (280-300) Lactic Acid 2.2 (0.5-2.2) mmol/L Calcium 10.5 D (8.6-10.8) mg/dL Lipase 15 (8-78) Units/L
[2017-04-21 14:54] LABS: Basophils # 0.1 K/mcL (0.0-0.2); Basophils % 0.5 %; Eosinophils # 0.1 K/mcL (0.0-0.6); Eosinophils % 0.4 %; Hematocrit 45.6 % (37.5-50.1); Immature Granulocytes % 0.6 % (0-4); Lymphocytes # 1.3 K/mcL (0.6-4.6); Lymphocytes % 11.3 %; Mean Corpuscular HGB Conc 34.2 g/dL (31.6-35.5); Mean Corpuscular Hemoglobin 29.7 pg (28.0-33.3); Mean Corpuscular Volume 86.9 fL (83.0-100.0); Mean Platelet Volume 9.6 fL (9.4-12.4); Monocytes # 0.4 K/mcL (0.0-1.3); Monocytes % 3.1 %; Neutrophils # 9.9 K/mcL (1.6-8.9); Platelet Count 243 K/mcL (140-400); Red Blood Count 5.25 M/mcL (4.19-5.50); Red Cell Distribution Width 13.1 % (11.5-14.5); Segmented Neutrophils % 84.1 %
[2017-04-21 14:55] LABS: Hemoglobin 15.6 g/dL (12.9-16.9)
[2017-04-21] MEDS ORDERED: D5% in Lactated Ringers 1,000 ML IVC ONE (15:08)
[2017-04-21 15:10] LABS: BUN/Creatinine Ratio 13 (6-26); Blood Urea Nitrogen 16 mg/dL (8-26); Carbon Dioxide 21 mEq/L (19-29); Chloride 106 mEq/L (98-109); Glucose 167 mg/dL (70-99); Lipase 15 Units/L (8-78); Osmolality,Calculated 297 (280-300); Potassium 3.5 mEq/L (3.5-4.5); Sodium 141 mEq/L (136-145); eGFR For African Americans > 60 (> 60); eGFR For Non-African Americans 58 (> 60)
[2017-04-21 15:11] LABS: Calcium 10.5 mg/dL (8.6-10.8)
[2017-04-21] MEDS ORDERED: D5% in Lactated Ringers 1,000 ML IVC SCH (15:15)
--- NOTE | 2017-04-21 17:24 | General Surgery Consult Note ---
Date of Encounter: 04/21/17 Time of Encounter: 17:22 Assessment and Plan (1) Vomiting Current Visit: Yes Status: Acute 61M with nausea, vomiting; no evidence of obstruction; - supportive care: pain control, IVF, NPO Qualifiers: Vomiting type: unspecified Vomiting Intractability: unspecified Nausea presence: with nausea Qualified Code(s): R11.2 - Nausea with vomiting, unspecified (2) Abdominal pain Current Visit: No Status: Acute non peritoneal on exam; no overlying skin changes, no evidence of hernia recurrence; CT largely unremarkable - supportive care - pain control by primary team - no acute surgery Qualifiers: Abdominal location: lower abdomen, unspecified Qualified Code(s): R10.30 - Lower abdominal pain, unspecified History of Present Illness Reason for consult: abdominal pain (with associated vomiting) History of present illness: Mr. Gustafson is a 61 year old male with 3 days of worsening abdominal pain. The pain is suprapubic with associated nausea and vomiting, non bloody, non bilious. No reports of fevers or chills. The patient states the pain is non radiating. With no identifiable alleviating or exacerbating factors. Due to the severity of the abdominal pain, the patient was advised to come to the ED for evaluation. He was discharged ~24hrs prior and presents again with similar symptoms. No reports of any sick contacts. Of note the patient is approximately 10 days post op from bilateral open inguinal hernia repairs Past Med Surg Social Fam HX - Past Medical History Medical history: cirrhosis, CHF, fibromyalgia, hepatitis, hypertension, kidney stones, liver disease Psychiatric history: bipolar, previous psychiatric hospitalization, other - Past Surgical History Surgical History: cholecystectomy - Social History Smoking Status: Current every day smoker Smokeless Tobacco Status: No Alcohol use: rarely Drug use: opiates, marijuana - Family History Father Living Status: Still Living Hx Family Cardiac Disorders: Yes (HTN) Hx Family Endocrine Disorder: Yes (DM) Medications and Allergies Atenolol [Tenormin] 50 mg PO DAILY 02/03/16 [History] Furosemide [Lasix] 20 mg PO DAILY 02/03/16 [History] Levothyroxine [Synthroid] 25 mcg PO 0630 02/03/16 [History] Lisinopril [Zestril] 20 mg PO DAILY 02/03/16 [History] Melatonin 9 mg PO HS PRN 02/03/16 [History] NIFEdipine [Afeditab Cr] 60 mg PO DAILY 02/03/16 [History] Gabapentin [Neurontin] 400 mg PO TID 04/02/17 [History] Acetaminophen [Tylenol] 650 mg PO Q6HR PRN #14 tablet 04/20/17 [Rx] Ondansetron HCl [Zofran] 4 mg PO Q4-6H PRN #10 tablet 04/20/17 [Rx] 3 Allergy/AdvReac Type Severity Reaction Status Date / Time No Known Allergies Allergy Verified 04/21/17 14:12 Review of Systems All systems PM: A 10-system review of systems was performed and is negative for pertinent findings except as documented above in the HPI. General Surgery Exam Initial Vital Signs Temp Pulse Resp BP Pulse Ox 98.4 F 73 15 168/91 100 04/21/17 14:15 04/21/17 14:15 04/21/17 14:15 04/21/17 14:15 04/21/17 14:15 - General physical appearance well developed, well nourished, no distress - ENT normocephalic - Neck no lymphadectomy - Respiratory normal expansion, normal respiratory effort, clear to auscultation - Cardiovascular Cardiovascular exam: Present: RRR - Abdomen Abdomen general surgery: Present: bowel sounds present, soft, tender (non distended; tender at R mid abdomen) - Incision Incision: Present: clean and dry, intact - Genitourinary Present: normal penis with no external lesions, testicles non-tender - Integumentary Integumentary general surgery: Present: warm and dry - Neurologic Present: CN 2-12 grossly intact - Psychiatric Psychiatric general surgery: Present: A&Ox3 Exam Initial Vital Signs Temp Pulse Resp BP Pulse Ox 98.4 F 73 15 168/91 100 04/21/17 14:15 04/21/17 14:15 04/21/17 14:15 04/21/17 14:15 04/21/17 14:15 Results - Labs 04/21/17 14:47 04/21/17 14:47 Abnormal lab results WBC 11.8 K/mcL (4.3-11.1) H 04/21/17 14:47 Neutrophils # 9.9 K/mcL (1.6-8.9) H 04/21/17 14:47 Creatinine 1.27 mg/dL (0.72-1.25) H 04/21/17 14:47 Est GFR (Non-Af Amer) 58 (> 60) L 04/21/17 14:47 Glucose 167 mg/dL (70-99) H 04/21/17 14:47 All other labs normal. - Imaging CT scan - abdomen: report reviewed, image reviewed (no evidence of ischemia or bowel obstruction or abscess; fluid collection at R inguinal canal, likley blood ;) CT scan - pelvis: report reviewed, image reviewed Consult Discharge Plan - Plan [facility]errals: [facility] [Primary Care Provider] -
--- NOTE | 2017-04-21 17:53 | Internal Med History&Physical ---
Date of Encounter: 04/21/17 Time of Encounter: 17:50 Assessment and Plan (1) Ileus Current visit: Yes Status: Acute Some suspicion for post-op ileus ?? per ED report after d/w surgery Admit for conservative IV anti-emetic, IVF, NPO for now pending surgery eval (2) Intractable nausea and vomiting Current visit: Yes Status: Acute related to above ? Now with anorexia Trial of conservative therapy Further management pending hospital course Qualifiers: Vomiting type: unspecified Qualified Code(s): R11.2 - Nausea with vomiting , unspecified (3) S/P inguinal hernia repair Current visit: Yes Status: Acute 3 weeks ago pending surgical eval Internal Medicine - H&P: HPI History of present illness: Mr Gustafson is a 61 yo male with recent b/l inguinal hernia surgery who presents with recurrent GI symptoms. He completed a bilateral inguinal hernia repair surgery on 04/02/17 and was discharged on the same day. He was later admitted from 04/19-04/20 for symptoms of abdominal pain, distension , nausea and vomiting. CT scan was done which did not show obstruction, ischemia , abscess or evidence of pneumatosis. There was initially concern for entrapment of the cecum on CT scan, but his abdominal exam was non peritoneal per surgical eval this last. He improved on conservative management and was discharged. He however developed recurrent symptoms since discharged with symptoms of emesis up to 12 x today with billious output. He could not take his pills or PO intake. The emesis were associated with non-specific abdominal discomfort. 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 and rec admission with conservative managment CT/CT abd pelvis w iv and oral IMPRESSION: Heterogeneous fluid in the proximal inguinal canal on the right, likely postop hematoma if there has been recent surgery. Sterility of fluid is technically indeterminate. This region is again closely marginating and distorting the base of the cecum. Cirrhosis, splenomegaly, and trace ascites Small stone in right kidney with mild caliectasis on the right Past Med Surg Social Fam HX - Past Medical History Medical history: cirrhosis, CHF, fibromyalgia, hepatitis, hypertension, kidney stones, liver disease Psychiatric history: bipolar, previous psychiatric hospitalization, other - Past Surgical History Surgical History: cholecystectomy - Social History Smoking Status: Current every day smoker Smokeless Tobacco Status: No Alcohol use: rarely Drug use: opiates, marijuana - Family History Father Living Status: Still Living Hx Family Cardiac Disorders: Yes (HTN) Hx Family Endocrine Disorder: Yes (DM) Internal Medicine - H&P: Meds Atenolol [Tenormin] 50 mg PO DAILY 02/03/16 [History] Furosemide [Lasix] 20 mg PO DAILY 02/03/16 [History] Levothyroxine [Synthroid] 25 mcg PO 0630 02/03/16 [History] Lisinopril [Zestril] 20 mg PO DAILY 02/03/16 [History] Melatonin 9 mg PO HS PRN 02/03/16 [History] NIFEdipine [Afeditab Cr] 60 mg PO DAILY 02/03/16 [History] Gabapentin [Neurontin] 400 mg PO TID 04/02/17 [History] Acetaminophen [Tylenol] 650 mg PO Q6HR PRN #14 tablet 04/20/17 [Rx] Ondansetron HCl [Zofran] 4 mg PO Q4-6H PRN #10 tablet 04/20/17 [Rx] 3 Allergy/AdvReac Type Severity Reaction Status Date / Time No Known Allergies Allergy Verified 04/21/17 14:12 All Systems PM: A 10-system review of systems was performed and is negative for pertinent findings except as documented above in the HPI. Review of systems: ROS 14 point review of systems reviewed as best as possible given presentation. Pertinent positive or negative as per HPI or otherwise reviewed as negative - Constitutional Vitals: Temp Pulse Resp BP Pulse Ox 98.4 F 72 16 166/99 100 04/21/17 14:15 04/21/17 15:03 04/21/17 14:35 04/21/17 15:03 04/21/17 15:03 Internal Med - H&P Results - Labs CBC & Chem 7: 04/21/17 14:47 04/21/17 14:47
[2017-04-21] MEDS ORDERED: Ondansetron ODT 4 MG TAB.RAPDIS PO PRN (18:11)
[2017-04-21] MEDS ORDERED: Naloxone 0.4 MG/ML INJ IVP PRN (18:12)
[2017-04-21] MEDS: D5% in Lactated Ringers 1,000 ML IVC SCH ×2 (19:56→23:18)
[2017-04-21] MEDS: Ringers Solution, Lactated 1,000 ML IVC SCH (20:25)
[2017-04-21] MEDS: Gabapentin 400 MG CAPSULE PO SCH (20:29)
[2017-04-21] MEDS: Acetaminophen 325 MG TABLET PO PRN (20:31)
[2017-04-21] MEDS: Melatonin 3 MG TABLET PO PRN (20:31)
[2017-04-21] MEDS: Ondansetron 4 MG/2 ML VIAL IVP PRN (20:32)
[2017-04-22 05:06] LABS: Basophils # 0.1 K/mcL (0.0-0.2); Basophils % 0.5 %; Eosinophils # 0.4 K/mcL (0.0-0.6); Eosinophils % 2.4 %; Hematocrit 41.2 % (37.5-50.1); Hemoglobin 14.3 g/dL (12.9-16.9); Immature Granulocytes % 0.6 % (0-4); Lymphocytes # 3.7 K/mcL (0.6-4.6); Lymphocytes % 23.8 %; Mean Corpuscular HGB Conc 34.7 g/dL (31.6-35.5); Mean Corpuscular Hemoglobin 30.8 pg (28.0-33.3); Mean Corpuscular Volume 88.6 fL (83.0-100.0); Mean Platelet Volume 9.5 fL (9.4-12.4); Monocytes # 0.9 K/mcL (0.0-1.3); Monocytes % 5.9 %; Neutrophils # 10.3 K/mcL (1.6-8.9); Platelet Count 220 K/mcL (140-400); Red Blood Count 4.65 M/mcL (4.19-5.50); Red Cell Distribution Width 13.4 % (11.5-14.5); Segmented Neutrophils % 66.8 %
[2017-04-22 05:16] LABS: BUN/Creatinine Ratio 11 (6-26); Blood Urea Nitrogen 12 mg/dL (8-26); Calcium 9.5 mg/dL (8.6-10.8); Carbon Dioxide 26 mEq/L (19-29); Chloride 107 mEq/L (98-109); Glucose 98 mg/dL (70-99); Osmolality,Calculated 290 (280-300); Potassium 3.2 mEq/L (3.5-4.5); Sodium 140 mEq/L (136-145); eGFR For African Americans > 60 (> 60); eGFR For Non-African Americans > 60 (> 60)
[2017-04-22] MEDS: Ondansetron 4 MG/2 ML VIAL IVP PRN ×2 (05:27→18:00)
[2017-04-22] MEDS: Levothyroxine 25 MCG TABLET PO SCH (05:27)
[2017-04-22] MEDS: Acetaminophen 325 MG TABLET PO PRN ×2 (05:27→20:12)
[2017-04-22] MEDS: Ringers Solution, Lactated 1,000 ML IVC SCH (06:54)
[2017-04-22] MEDS: Gabapentin 400 MG CAPSULE PO SCH ×3 (08:51→20:12)
[2017-04-22] MEDS: Lisinopril 20 MG TABLET PO SCH (08:55)
[2017-04-22] MEDS ORDERED: Potassium Chloride 40 MEQ, Lidocaine 1% 2 ML in D5% in Water 500 ML IVPB ONE (09:34)
--- NOTE | 2017-04-22 10:02 | Internal Med Progress Note ---
<Lisset Murray - Last Filed: 04/22/17 16:13> Date of Encounter: 04/22/17 Time of Encounter: 10:00 - Assessment and plan (1) Abdominal pain Current Visit: No Status: Resolved Assessment and plan: Patient reports epigastric abdominal pain he believes is secondary to vomiting. Patient had bilateral inguinal hernia repair on 04/02/2017 and has had no complications- incision site healing well no erythema CT abdomen showed heterogeneous fluid in inguinal canal on right side concern for hematoma. Small stone 2 to 3 mm and right kidney was mild caliectasis. Patient reports that epigastric pain has improved and is only minimally tender to palpation. Afebrile, WBC 15.4 -Surgery signed off -advanced to soft diet -continue IV fluids -continue pain control with acetaminophen as needed -continue Zofran and Phenergan Qualifiers: Abdominal location: lower abdomen, unspecified Qualified Code(s): R10.30 - Lower abdominal pain, unspecified (2) Leukocytosis Current Visit: Yes Status: Acute Assessment and plan: WBC increased to 15.4 from 11.8. Unknown etiology possibly due to vomiting patient is afebrile. Denies shortness of breath, costs, dysuria, fever, chills. CT abdomen shows small stone 2 to 3 mm on the right kidney with mild caliectasis U/A: normal. nitrite and leukocyte esterase negative. -Will continue to monitor WBC Qualifiers: Qualified Code(s): D72.829 - Elevated white blood cell count, unspecified (3) Vomiting Current Visit: Yes Status: Resolved Assessment and plan: Patient reports that he has had vomited multiple times yesterday between 9 AM and 1 PM for which he then presented to the ED. He was last admitted and discharged for nausea and vomiting on 04/19/2017- 04/20/2017 he denies a hemetemesis, fever, chills. Patient reports that he has not vomited today and that the nausea has improved with Zofran -Continue Zofran and Phenergan Qualifiers: Vomiting type: unspecified Vomiting Intractability: unspecified Nausea presence: with nausea Qualified Code(s): R11.2 - Nausea with vomiting, unspecified (4) Congestive heart failure Current Visit: Yes Status: Acute Assessment and plan: Patient has a history of heart failure not an exacerbation, not fluid overloaded -continue home medication of Lasix, lisinopril, atenolol, nifedipine Qualifiers: Qualified Code(s): I50.9 - Heart failure, unspecified (5) Hypertension Current Visit: Yes Status: Acute Assessment and plan: Patient has a history of hypertension --continue home medication of lisinopril, atenolol, nifedipine, lasix Qualifiers: Qualified Code(s): I10 - Essential (primary) hypertension (6) Hypothyroid Current Visit: Yes Status: Acute Assessment and plan: History of hypothyroidism -continue home medication of levothyroxine Qualifiers: Hypothyroidism type: unspecified Qualified Code(s): E03.9 - Hypothyroidism , unspecified (7) DVT prophylaxis Current Visit: No Status: Acute Assessment and plan: SQ heparin - Subjective Interval history: Laying in bed comfortably watching television he reports that his nausea and abdominal pain has improved and that the zofran helping he admits to Malaise, minimal abdominal pain and nausea. His last bowel movement was yesterday no blood in it and it was loose - Constitutional Vitals: Temp Pulse Resp BP Pulse Ox 98.2 F 65 15 131/72 98 04/22/17 07:29 04/22/17 07:29 04/22/17 07:29 04/22/17 07:29 04/22/17 09:54 Exam: Gen.: Vitals noted. No acute distress. AAOx3 HEENT: oropharynx clear, Normocephalic, atraumatic Cardiac: RRR, no murmur, +S1/S2 Pulmonary: CTA bilaterally, no wheezes, rales or rhonchi, equal chest expansion Abdomen: soft, minimal epigastric tender, Bowel sounds noted, no guarding or rebound Back: right CVA minimal tenderness Extremities: no BLE edema, nontender calf, no cyanosis or clubbing Neuro: A&Ox3, moves all extremities, no focal deficits Psych: Appropriate mood and behavior Internal Medicine: Result - Labs CBC & Chem 7: 04/22/17 04:54 04/22/17 04:54 Labs: Short CBC 04/22/17 Range/Units 04:54 WBC 15.4 H (4.3-11.1) K/mcL Hgb 14.3 (12.9-16.9) g/dL Hct 41.2 (37.5-50.1) % Plt Count 220 (140-400) K/mcL Neutrophils # 10.3 H (1.6-8.9) K/mcL BMP 04/22/17 04:54 Sodium 140 Potassium 3.2 L Chloride 107 Carbon Dioxide 26 BUN 12 Creatinine 1.07 Glucose 98 Calcium 9.5 Consult Discharge Plan - Plan [facility]errals: [facility]Primary Care Provider[facility] - <Chau Acosta - Last Filed: 04/22/17 16:34> Date of Encounter: 04/22/17 - Constitutional Vitals: Temp Pulse Resp BP Pulse Ox 98.4 F 66 15 193/95 100 04/22/17 14:32 04/22/17 14:32 04/22/17 14:32 04/22/17 14:32 04/22/17 14:32 Internal Medicine: Result - Labs CBC & Chem 7: 04/22/17 04:54 04/22/17 04:54 Labs: Short CBC 04/22/17 Range/Units 04:54 WBC 15.4 H (4.3-11.1) K/mcL Hgb 14.3 (12.9-16.9) g/dL Hct 41.2 (37.5-50.1) % Plt Count 220 (140-400) K/mcL Neutrophils # 10.3 H (1.6-8.9) K/mcL BMP 04/22/17 04:54 Sodium 140 Potassium 3.2 L Chloride 107 Carbon Dioxide 26 BUN 12 Creatinine 1.07 Glucose 98 Calcium 9.5 Urine 04/22/17 Range/Units 13:49 Urine Color Yellow (Yellow) Urine Clarity Clear (Clear) Urine pH 6.5 (5.0-8.0) pH Units Ur Specific [place] 1.022 (1.010-1.025) Urine Protein Trace (Neg-Trace) mg/dL Urine Glucose (UA) Normal (Normal) mg/dL - Attending Attestation I independently saw and examined this patient on 04/22/2017, I have reviewed her chart as well. Diagnoses and management plan was discussed with the patient and the resident physician. 61 M with multiple medical co-morbidities whos is being managed for recurrent emesis, he has no bowel obstruction or ileus, he has nephrolithiasis and we have a concern for a possible UTI. He denies new complains and his last episode of vomiting was last night Physical exam: VSS. Systemic exam is WNL Labs and Imaging reviewed: Worsening leukocytosis, hypokalemia, hyperglycemia, UA is clean. Abd CT: Possible hematoma collection in inguinal region. LE well perfused. Agree with supportive care, Gen surg eval noted, UA is clean. Leukocytosis possibly from acute stress. Replace K, advance diet, monitor overnight, anticipate early d/c a.m. Rest of details as in resident physicians documentation
--- NOTE | 2017-04-22 10:58 | General Surgery Progress Note ---
<Mandi Landis - Last Filed: 04/22/17 13:57> Date of Encounter: 04/22/17 Time of Encounter: 10:00 - Assessment and Plan (1) Abdominal pain Current Visit: No Status: Resolved 61M with nausea, vomiting; no evidence of obstruction; - supportive care: pain control, IVF - From a surgical perspective patient can advance to a PO trial. - No need for surgery at this time, will sign off for now. Please contact with questions or concerns. Qualifiers: Abdominal location: lower abdomen, unspecified Qualified Code(s): R10.30 - Lower abdominal pain, unspecified (2) Vomiting Current Visit: Yes Status: Resolved No n/v overnight. Does admit to marijuana use and did try to take a hot shower a couple of days ago when nauseous and did not help. Qualifiers: Vomiting type: unspecified Vomiting Intractability: unspecified Nausea presence: with nausea Qualified Code(s): R11.2 - Nausea with vomiting, unspecified Subjective Narrative: Patient is a 61-year-old male with pmh of cirrhosis and recent bilateral inguinal hernia repair 04/02/17 presented to the hospital with abdominal pain, nausea, vomiting. Patient was discharged for similar symptoms about 24 hours. Patient admitted for intractable N/V. Today patient says that he has minimal abdominal pain and denies nausea or vomiting. Patient states his last bowel movement was yesterday. Patient states he is feeling much better. Objective Vital Signs - Last 8 Hours Temp Pulse Resp BP Pulse Ox 04/22/17 10:48 98.2 F 57 15 116/79 97 04/22/17 09:54 98 04/22/17 07:29 98.2 F 65 15 131/72 98 04/22/17 04:23 97.9 F 60 15 125/84 99 Intake and Output 04/21/17 04/22/17 04/22/17 23:59 07:59 15:59 Intake Total 1286 / 1286 714 / 714 0 / 0 Output Total 1200 / 1200 600 / 600 0 / 0 Balance 86 / 86 114 / 114 0 / 0 Intake: IV Fluids 1286 / 1286 714 / 714 0.9 % Sodium Chloride 1,000 ML 1000 / 1000 @ 3750 mls/hr IVC .Q16M [facility] Rx# :[id number] Lactated Ringers 1,000 ML @ 100 286 / 286 714 / 714 mls/hr IVC .Q10H [facility] Rx#: [id number] Oral 0 / 0 0 / 0 0 / 0 Output: Urine 1200 / 1200 600 / 600 0 / 0 Other: Weight 95.396 kg Blood Glucose* 126 Patient Weight 04/22/17 23:59 Weight 95.396 kg - Additional Exam Constitutional: Alert, in no acute distress, well nourished, well developed. Head: Normocephalic, atraumatic, normal contour and symmetric, no masses, lesions or scars Heart: Normal, regular rate and rhythm, no murmurs Lungs: Clear to auscultation, no wheezes, rales, or rhonchi Abdomen: bilateral inquinal hernia repair incisions that are well approximated and healing well without signs on infection, mild tenderness bilaterally but patient says pain is mostly in the central but is minimal currently, Soft, nondistended, and no masses palpable, bowel sounds present and normal, no guarding or rigidity. Extremities: No clubbing, cyanosis, or edema, radial pulse +2/4, capillary refill <2sec. Skin: tattoos present, Skin warm and dry, no lesions, no rashes, no jaundice Neurologic: Cranial nerves II through XII grossly intact, no focal deficits, strength within normal limits in all extremities Psych: Cooperative with exam, good eye contact, cognitive function intact, judgment good insight good, speech clear, thought process logical, and goal directed - Labs 04/22/17 04:54 04/22/17 04:54 Diabetes panel 04/22/17 Range/Units 04:54 Sodium 140 (136-145) mEq/L Potassium 3.2 L (3.5-4.5) mEq/L Chloride 107 (98-109) mEq/L Carbon Dioxide 26 (19-29) mEq/L BUN 12 (8-26) mg/dL Creatinine 1.07 (0.72-1.25) mg/dL Glucose 98 (70-99) mg/dL Calcium 9.5 (8.6-10.8) mg/dL Calcium panel 04/22/17 Range/Units 04:54 Calcium 9.5 (8.6-10.8) mg/dL Pituitary panel 04/22/17 Range/Units 04:54 Sodium 140 (136-145) mEq/L Potassium 3.2 L (3.5-4.5) mEq/L Chloride 107 (98-109) mEq/L Carbon Dioxide 26 (19-29) mEq/L BUN 12 (8-26) mg/dL Creatinine 1.07 (0.72-1.25) mg/dL Glucose 98 (70-99) mg/dL Calcium 9.5 (8.6-10.8) mg/dL Adrenal panel 04/22/17 Range/Units 04:54 Sodium 140 (136-145) mEq/L Potassium 3.2 L (3.5-4.5) mEq/L Chloride 107 (98-109) mEq/L Carbon Dioxide 26 (19-29) mEq/L BUN 12 (8-26) mg/dL Creatinine 1.07 (0.72-1.25) mg/dL Glucose 98 (70-99) mg/dL Calcium 9.5 (8.6-10.8) mg/dL Consult Discharge Plan - Plan [facility]errals: [facility] [Primary Care Provider[facility] - <Navarro Hennessy - Last Filed: 04/23/17 08:06> Date of Encounter: 04/23/17 - Assessment and Plan (1) Vomiting Current Visit: Yes Status: Resolved Qualifiers: Vomiting type: unspecified Vomiting Intractability: unspecified Nausea presence: with nausea Qualified Code(s): R11.2 - Nausea with vomiting, unspecified (2) Abdominal pain Current Visit: No Status: Resolved Qualifiers: Abdominal location: lower abdomen, unspecified Qualified Code(s): R10.30 - Lower abdominal pain, unspecified Objective Vital Signs - Last 8 Hours Temp Pulse Resp BP Pulse Ox 04/23/17 07:11 98.3 F 56 16 128/72 99 04/23/17 03:16 98.2 F 55 15 125/80 97 Intake and Output 04/22/17 04/23/17 04/23/17 23:59 07:59 15:59 Intake Total 0 / 0 100 / 100 Output Total 150 / 150 0 / 0 Balance -150 / -150 100 / 100 Intake: Oral 0 / 0 100 / 100 Output: Urine 150 / 150 0 / 0 Other: Percent of Meal Consumed 0% # Voids 1 Weight 91.1 kg Patient Weight 04/23/17 23:59 Weight 91.1 kg - Labs 04/23/17 06:18 04/23/17 06:18 Diabetes panel 04/23/17 Range/Units 06:18 Sodium 138 (136-145) mEq/L Potassium 3.1 L (3.5-4.5) mEq/L Chloride 106 (98-109) mEq/L Carbon Dioxide 25 (19-29) mEq/L BUN 15 (8-26) mg/dL Creatinine 1.33 H (0.72-1.25) mg/dL Glucose 96 (70-99) mg/dL Calcium 9.3 (8.6-10.8) mg/dL Calcium panel 04/23/17 Range/Units 06:18 Calcium 9.3 (8.6-10.8) mg/dL Pituitary panel 04/23/17 Range/Units 06:18 Sodium 138 (136-145) mEq/L Potassium 3.1 L (3.5-4.5) mEq/L Chloride 106 (98-109) mEq/L Carbon Dioxide 25 (19-29) mEq/L BUN 15 (8-26) mg/dL Creatinine 1.33 H (0.72-1.25) mg/dL Glucose 96 (70-99) mg/dL Calcium 9.3 (8.6-10.8) mg/dL Adrenal panel 04/23/17 Range/Units 06:18 Sodium 138 (136-145) mEq/L Potassium 3.1 L (3.5-4.5) mEq/L Chloride 106 (98-109) mEq/L Carbon Dioxide 25 (19-29) mEq/L BUN 15 (8-26) mg/dL Creatinine 1.33 H (0.72-1.25) mg/dL Glucose 96 (70-99) mg/dL Calcium 9.3 (8.6-10.8) mg/dL - Attending Attestation I have personally seen and examined the patient. I have reviewed pertinent labs , imaging, progress notes, including this one. I agree with the above assessment and plan and wish to include the following... 61M s/p open bilateral inguinal hernia repair readmitted for nausea, vomiting, PO intolerance. No evidence of obstruction or ischemia on CT scan; Patient reports feeling better this morning; minimal abdominal discomfort, has an appetite. Attempt PO trial and advance as tolerated. If doing well, from a surgical stand point, can be discharged.
[2017-04-22] MEDS: Furosemide 20 MG TABLET PO SCH (13:53)
[2017-04-22] MEDS: NIFEdipine XL (24 HR) 60 MG TAB.ER.24 PO SCH (13:54)
[2017-04-22] MEDS: Pantoprazole 40 MG VIAL IVP SCH (13:54)
[2017-04-22 14:30] LABS: Bilirubin,Urine Small (Negative); Blood,Urine Negative (Negative); Clarity,Urine Clear (Clear); Color,Urine Yellow (Yellow); Glucose,Urine (UA) Normal (Normal); Ketones,Urine Negative (Negative); Leukocyte Esterase,Urine Negative (Negative); Nitrite,Urine Negative (Negative); PH,Urine 6.5 pH Units (5.0-8.0); Protein,Urine Trace mg/dL (Neg-Trace); Specific Gravity,Urine 1.022 (1.010-1.025); Urobilinogen,Urine Normal (Normal)
[2017-04-22 14:32] LABS: Bacteria,Urine None Seen per hpf (None-Few); Hyaline Casts,Urine None Seen per lpf (None-Few); RBC,Urine 0-3 per hpf (0-3); Squamous Epithelial Cell,Urine Moderate per lpf (None-Few); WBC,Urine 0-3 per hpf (0-3)
[2017-04-22] MEDS: *HR* Promethazine 25 MG/ML VIAL IVP PRN (15:12)
[2017-04-22] MEDS: *HR* Heparin 5,000 UNIT/ML VIAL SQ SCH (16:32)
[2017-04-22] MEDS: Melatonin 3 MG TABLET PO PRN (20:12)
[2017-04-23] MEDS: *HR* Promethazine 25 MG/ML VIAL IVP PRN ×2 (00:59→17:42)
[2017-04-23] MEDS: Levothyroxine 25 MCG TABLET PO SCH (05:23)
[2017-04-23] MEDS: *HR* Heparin 5,000 UNIT/ML VIAL SQ SCH ×2 (05:23→17:46)
[2017-04-23 06:34] LABS: Basophils # 0.1 K/mcL (0.0-0.2); Basophils % 0.7 %; Eosinophils # 0.3 K/mcL (0.0-0.6); Eosinophils % 2.8 %; Hematocrit 40.7 % (37.5-50.1); Hemoglobin 14.1 g/dL (12.9-16.9); Immature Granulocytes % 0.7 % (0-4); Lymphocytes # 3.4 K/mcL (0.6-4.6); Lymphocytes % 28.1 %; Mean Corpuscular HGB Conc 34.6 g/dL (31.6-35.5); Mean Corpuscular Hemoglobin 30.8 pg (28.0-33.3); Mean Corpuscular Volume 88.9 fL (83.0-100.0); Mean Platelet Volume 9.6 fL (9.4-12.4); Monocytes # 0.8 K/mcL (0.0-1.3); Monocytes % 6.4 %; Neutrophils # 7.5 K/mcL (1.6-8.9); Platelet Count 201 K/mcL (140-400); Red Blood Count 4.58 M/mcL (4.19-5.50); Red Cell Distribution Width 13.4 % (11.5-14.5); Segmented Neutrophils % 61.3 %
[2017-04-23 06:45] LABS: BUN/Creatinine Ratio 11 (6-26); Blood Urea Nitrogen 15 mg/dL (8-26); Calcium 9.3 mg/dL (8.6-10.8); Carbon Dioxide 25 mEq/L (19-29); Chloride 106 mEq/L (98-109); Glucose 96 mg/dL (70-99); Osmolality,Calculated 287 (280-300); Potassium 3.1 mEq/L (3.5-4.5); Sodium 138 mEq/L (136-145); eGFR For African Americans > 60 (> 60); eGFR For Non-African Americans 55 (> 60)
[2017-04-23] MEDS ORDERED: Potassium Chloride 40 MEQ, Lidocaine 1% 2 ML in D5% in Water 500 ML IVPB ONE (08:04)
[2017-04-23] MEDS ORDERED: 0.9 % Sodium Chloride 500 ML IVC ONE (08:31)
--- NOTE | 2017-04-23 08:31 | Discharge Summary ---
<Lisset Murray - Last Filed: 04/24/17 11:47> Date of Encounter: 04/24/17 Time of Encounter: 08:15 - Discharge Diagnosis (1) Abdominal pain Priority: Primary Status: Resolved Qualifiers: Abdominal location: lower abdomen, unspecified Qualified Code(s): R10.30 - Lower abdominal pain, unspecified (2) Leukocytosis Priority: Secondary Status: Acute Qualifiers: Qualified Code(s): D72.829 - Elevated white blood cell count, unspecified (3) Vomiting Priority: Secondary Status: Resolved Qualifiers: Vomiting type: unspecified Vomiting Intractability: unspecified Nausea presence: with nausea Qualified Code(s): R11.2 - Nausea with vomiting, unspecified (4) Congestive heart failure Priority: Secondary Status: Acute Qualifiers: Qualified Code(s): I50.9 - Heart failure, unspecified (5) Hypertension Priority: Secondary Status: Acute Qualifiers: Qualified Code(s): I10 - Essential (primary) hypertension (6) Hypothyroid Priority: Secondary Status: Acute Qualifiers: Hypothyroidism type: unspecified Qualified Code(s): E03.9 - Hypothyroidism , unspecified (7) DVT prophylaxis Priority: Secondary Status: Acute - Discharge Medications Prescriptions: Ondansetron HCl [Zofran] 4 mg PO Q4-6H PRN 18 Days #10 tablet PRN Reason: Nausea And Vomiting Home Medications: Atenolol [Tenormin] 50 mg PO DAILY 02/03/16 [History] Furosemide [Lasix] 20 mg PO DAILY 02/03/16 [History] Levothyroxine [Synthroid] 25 mcg PO 0630 02/03/16 [History] Lisinopril [Zestril] 20 mg PO DAILY 02/03/16 [History] Melatonin 9 mg PO HS PRN 02/03/16 [History] NIFEdipine [Afeditab Cr] 60 mg PO DAILY 02/03/16 [History] Gabapentin [Neurontin] 800 mg PO TID 04/02/17 [History] Acetaminophen [Tylenol] 650 mg PO Q6HR PRN #14 tablet 04/20/17 [Rx] Ondansetron HCl [Zofran] 4 mg PO Q4-6H PRN 18 Days #10 tablet 04/24/17 [Rx] Allergies/Adverse Reactions: 3 Allergy/AdvReac Type Severity Reaction Status Date / Time No Known Allergies Allergy Verified 04/21/17 14:12 Date of admission: 04/21/17 17:15 Primary care physician: PCP [facility] Consults: 04/22/17 09:28 Consult to Surgery [CONS] Routine Consulting Provider: [facility] Reason for Consult: nausea vomiting s/p hernia repair Call Completed: Yes Discharging clinician: Adriano Sweeney Anticipated date of discharge: 04/24/17 - Patient Status Disposition: Home, Self-Care Condition: Good Functional capacity at discharge: independent ambulation Overall status at discharge: patient is back to baseline - Discharge Instructions [facility] With: [facility] Provider[facility] - 04/29/17 9:30 am Additional Instructions: follow up with PCP take zofran as needed for nausea return to hospital if you should have fever ,chills. increasing abdominal pain - Diet and Activity Activity: resume usual activities as tolerated Diet: advance to your usual diet Hospital course: Mr Gustafson is a 61 yo male with recent b/l inguinal hernia surgery who presents with recurrent GI symptoms. He completed a bilateral inguinal hernia repair surgery on 04/02/17 and was discharged on the same day. He was later admitted from 04/19-04/20 for symptoms of abdominal pain, distension, nausea and vomiting. CT scan was done which did not show obstruction, ischemia, abscess or evidence of pneumatosis. There was initially concern for entrapment of the cecum on CT scan, but his abdominal exam was non peritoneal per surgical eval this last. He improved on conservative management and was discharged. He however developed recurrent symptoms since discharged with symptoms of emesis up to 12 x today with billious output. He could not his pills or PO intake. The emesis were associated with non-specific abdominal discomfort. On review, he notes of a semi-solid BM early this morning. He was then admitted to the hospital and surgery was consulted. CT abdomen showed heterogeneous fluid in inguinal canal on right side concern for hematoma. Patient has been NPO, IV fluids, antinausea medications, pain control. The patient's white blood cell count improved. The patient denied abdominal pain and vomiting. Nausea improved the patient was later advanced to a soft diet. Surgery then signed off due to this not being a surgical emergency are due to recent surgery. The patient stated that he would be ready for discharge however he developed NICHELLE due to his previous vomiting, and his potassium had to be supplemented. The patient was given a bolus of IV fluids and there was encouraged to drink more water. Upon discharge the patient's creatinine had improved and he denied nausea, vomiting, abdominal pain, fever, chills. He was instructed to follow-up with his PCP outpatient in about a week. He was given a prescription for Zofran for nausea as needed. He is alert and oriented times 3 with full capacity. He stated clearly seen in the treatment plan and all questions were answered. He was told to return to the hospital patient developed fever, chills, worsening abdominal pain. - Time Spent with Patient Total time spent providing and/or coordinating discharge services: - Constitutional Vitals: Temp Pulse Resp BP Pulse Ox 98.3 F 56 16 128/72 99 04/23/17 07:11 04/23/17 07:11 04/23/17 07:11 04/23/17 07:11 04/23/17 07:11 Exam: Gen.: Vitals noted. No acute distress. AAOx3 HEENT: oropharynx clear, Normocephalic, atraumatic Cardiac: RRR, no murmur, +S1/S2 Pulmonary: CTA bilaterally, no wheezes, rales or rhonchi, equal chest expansion Abdomen: soft, nontender, Bowel sounds noted, no guarding Extremities: no BLE edema, nontender calf, no cyanosis or clubbing Neuro: A&Ox3, moves all extremities, no focal deficits Psych: Appropriate mood and behavior <Adriano Sweeney - Last Filed: 04/24/17 13:09> Date of Encounter: 04/24/17 Date of admission: 04/21/17 17:15 [facility] care physician: [facility] Consults: 04/22/17 09:28 Consult to Surgery [CONS] Routine Consulting Provider: [facility] Reason for Consult: nausea vomiting s/p hernia repair Call Completed: Yes Hospital course: Mr. Gustafson is a 61 year old male - Time Spent with Patient Total time spent providing and/or coordinating discharge services: - Constitutional Vitals: Temp Pulse Resp BP Pulse Ox 98.0 F 54 15 143/78 98 04/24/17 10:28 04/24/17 10:28 04/24/17 10:28 04/24/17 10:28 04/24/17 10:28 - Attending Attestation I saw and examined patient independently. I have discussed with the resident Dr Murray regarding the discharge plan. Agree with that documentation. Patient was admitted for nausea and vomiting. After treatment, his symptoms has resolved. Patient denies nausea vomiting abdominal pain today. He tolerated regular diet well. Labs shows hypokalemia and NICHELLE has resolved. Patient will discharge home and follow-up with PCP as outpatient
[2017-04-23] MEDS: Furosemide 20 MG TABLET PO SCH (09:18)
[2017-04-23] MEDS: NIFEdipine XL (24 HR) 60 MG TAB.ER.24 PO SCH (09:18)
[2017-04-23] MEDS: Lisinopril 20 MG TABLET PO SCH (09:18)
[2017-04-23] MEDS: Pantoprazole 40 MG VIAL IVP SCH (09:19)
[2017-04-23] MEDS: Gabapentin 400 MG CAPSULE PO SCH ×3 (09:19→21:13)
[2017-04-23] MEDS: Ondansetron 4 MG/2 ML VIAL IVP PRN (12:58)
--- NOTE | 2017-04-23 13:06 | Internal Med Progress Note ---
<Lisset Murray - Last Filed: 04/23/17 13:03> Date of Encounter: 04/23/17 Time of Encounter: 08:30 - Assessment and plan (1) Abdominal pain Current Visit: No Status: Resolved Assessment and plan: Patient reports epigastric abdominal pain he believes is secondary to vomiting. Patient had bilateral inguinal hernia repair on 04/02/2017 and has had no complications- incision site healing well no erythema CT abdomen showed heterogeneous fluid in inguinal canal on right side concern for hematoma. Small stone 2 to 3 mm and right kidney was mild caliectasis. Patient reports that epigastric pain has improved and is only minimally tender to palpation. Afebrile, WBC 12.2 improving from yesterday tolerating soft diet well -Surgery signed off -advanced to soft diet -continue IV fluids -continue pain control with acetaminophen as needed -continue Zofran and Phenergan -most likely discharge tomorrow Qualifiers: Abdominal location: lower abdomen, unspecified Qualified Code(s): R10.30 - Lower abdominal pain, unspecified (2) NICHELLE (acute kidney injury) Current Visit: Yes Status: Acute Assessment and plan: Patient has acute kidney injury, his creatinine increased to 1.33 and was normal yesterday potassium is 3.1 and has been supplemented throughout his admission -500 mL IV bolus saline -encourage increased fluid intake of water -continue to monitor creatinine -avoid nephrotoxic agents (3) Leukocytosis Current Visit: Yes Status: Acute Assessment and plan: WBC improving and is now 12.2 Unknown etiology possibly due to vomiting patient is afebrile. Denies shortness of breath, costs, dysuria, fever, chills. CT abdomen shows small stone 2 to 3 mm on the right kidney with mild caliectasis U/A: normal. nitrite and leukocyte esterase negative. -Will continue to monitor WBC Qualifiers: Qualified Code(s): D72.829 - Elevated white blood cell count, unspecified (4) Vomiting Current Visit: Yes Status: Resolved Assessment and plan: Patient reports that he is no longer vomiting he denies a hemetemesis, fever, chills. Patient reports that he has not vomited today and that the nausea has improved with Zofran -Continue Zofran and Phenergan Qualifiers: Vomiting type: unspecified Vomiting Intractability: unspecified Nausea presence: with nausea Qualified Code(s): R11.2 - Nausea with vomiting, unspecified (5) Congestive heart failure Current Visit: Yes Status: Acute Assessment and plan: Patient has a history of heart failure not an exacerbation, not fluid overloaded -continue home medication of Lasix, lisinopril, atenolol, nifedipine Qualifiers: Qualified Code(s): I50.9 - Heart failure, unspecified (6) Hypertension Current Visit: Yes Status: Acute Assessment and plan: Patient has a history of hypertension --continue home medication of lisinopril, atenolol, nifedipine, lasix Qualifiers: Qualified Code(s): I10 - Essential (primary) hypertension (7) Hypothyroid Current Visit: Yes Status: Acute Assessment and plan: History of hypothyroidism -continue home medication of levothyroxine Qualifiers: Hypothyroidism type: unspecified Qualified Code(s): E03.9 - Hypothyroidism , unspecified (8) DVT prophylaxis Current Visit: No Status: Acute Assessment and plan: SQ heparin - Subjective Interval history: Laying in bed comfortably watching television he reports that his nausea and abdominal pain has improved and that the zofran helping he has no other complaints and is looking forward to discharge tomorrow - Constitutional Vitals: Temp Pulse Resp BP Pulse Ox 98.3 F 76 16 121/74 99 04/23/17 10:39 04/23/17 10:39 04/23/17 10:39 04/23/17 10:39 04/23/17 10:39 Exam: Gen.: Vitals noted. No acute distress. AAOx3 HEENT: oropharynx clear, Normocephalic, atraumatic Cardiac: RRR, no murmur, +S1/S2 Pulmonary: CTA bilaterally, no wheezes, rales or rhonchi, equal chest expansion Abdomen: soft, nontender, Bowel sounds noted, no guarding Extremities: no BLE edema, nontender calf, no cyanosis or clubbing Neuro: A&Ox3, moves all extremities, no focal deficits Psych: Appropriate mood and behavior Internal Medicine: Result - Labs CBC & Chem 7: 04/23/17 06:18 04/23/17 06:18 Labs: Short CBC 04/23/17 Range/Units 06:18 WBC 12.2 H (4.3-11.1) K/mcL Hgb 14.1 (12.9-16.9) g/dL Hct 40.7 (37.5-50.1) % Plt Count 201 (140-400) K/mcL Neutrophils # 7.5 (1.6-8.9) K/mcL BMP 04/23/17 06:18 Sodium 138 Potassium 3.1 L Chloride 106 Carbon Dioxide 25 BUN 15 Creatinine 1.33 H Glucose 96 Calcium 9.3 Urine 04/22/17 Range/Units 13:49 Urine Color Yellow (Yellow) Urine Clarity Clear (Clear) Urine pH 6.5 (5.0-8.0) pH Units Ur Specific [place] 1.022 (1.010-1.025) Urine Protein Trace (Neg-Trace) mg/dL Urine Glucose (UA) Normal (Normal) mg/dL Consult Discharge Plan - Plan [facility]: [facility] Provider[facility] - <Adriano Sweeney - Last Filed: 04/23/17 16:10> Date of Encounter: 04/23/17 - Constitutional Vitals: Temp Pulse Resp BP Pulse Ox 98.4 F 61 16 175/98 97 04/23/17 15:00 04/23/17 15:00 04/23/17 15:00 04/23/17 15:00 04/23/17 15:00 Internal Medicine: Result - Labs CBC & Chem 7: 04/23/17 06:18 04/23/17 06:18 Labs: Short CBC 04/23/17 Range/Units 06:18 WBC 12.2 H (4.3-11.1) K/mcL Hgb 14.1 (12.9-16.9) g/dL Hct 40.7 (37.5-50.1) % Plt Count 201 (140-400) K/mcL Neutrophils # 7.5 (1.6-8.9) K/mcL BMP 04/23/17 06:18 Sodium 138 Potassium 3.1 L Chloride 106 Carbon Dioxide 25 BUN 15 Creatinine 1.33 H Glucose 96 Calcium 9.3 - Attending Attestation I saw and examined patient independently. I have discussed with the resident Dr Murray regarding management plan. I agree with the documentation. Patient has no further vomiting or nausea, tolerate soft diet well. Vital signs stable. Today Patient has mild elevated creatinine and hypokalemia. Will continue to encourage self hydration and correct hypokalemia with potassium supplement. Plan to DC home tomorrow if NICHELLE and hypokalemia improves.
[2017-04-23] MEDS: Acetaminophen 325 MG TABLET PO PRN (16:02)
[2017-04-23] MEDS: Melatonin 3 MG TABLET PO PRN (21:13)
[2017-04-24] MEDS: Levothyroxine 25 MCG TABLET PO SCH (05:34)
[2017-04-24] MEDS: *HR* Heparin 5,000 UNIT/ML VIAL SQ SCH (05:34)
[2017-04-24 06:55] LABS: Basophils # 0.1 K/mcL (0.0-0.2); Basophils % 0.8 %; Eosinophils # 0.5 K/mcL (0.0-0.6); Eosinophils % 4.5 %; Hematocrit 39.2 % (37.5-50.1); Hemoglobin 13.6 g/dL (12.9-16.9); Immature Granulocytes % 0.6 % (0-4); Lymphocytes # 3.1 K/mcL (0.6-4.6); Lymphocytes % 30.1 %; Mean Corpuscular HGB Conc 34.7 g/dL (31.6-35.5); Mean Corpuscular Hemoglobin 30.8 pg (28.0-33.3); Mean Corpuscular Volume 88.9 fL (83.0-100.0); Mean Platelet Volume 9.9 fL (9.4-12.4); Monocytes # 0.6 K/mcL (0.0-1.3); Monocytes % 6.3 %; Neutrophils # 5.8 K/mcL (1.6-8.9); Platelet Count 161 K/mcL (140-400); Red Blood Count 4.41 M/mcL (4.19-5.50); Red Cell Distribution Width 13.6 % (11.5-14.5); Segmented Neutrophils % 57.7 %
[2017-04-24 07:06] LABS: BUN/Creatinine Ratio 13 (6-26); Blood Urea Nitrogen 15 mg/dL (8-26); Calcium 9.2 mg/dL (8.6-10.8); Carbon Dioxide 25 mEq/L (19-29); Chloride 109 mEq/L (98-109); Glucose 92 mg/dL (70-99); Magnesium 1.8 mg/dL (1.6-2.6); Osmolality,Calculated 288 (280-300); Potassium 3.6 mEq/L (3.5-4.5); Sodium 139 mEq/L (136-145); eGFR For African Americans > 60 (> 60); eGFR For Non-African Americans > 60 (> 60)
[2017-04-24] MEDS: Acetaminophen 325 MG TABLET PO PRN (09:08)
[2017-04-24] MEDS: NIFEdipine XL (24 HR) 60 MG TAB.ER.24 PO SCH (09:08)
[2017-04-24] MEDS: Gabapentin 400 MG CAPSULE PO SCH (09:08)
[2017-04-24 10:29] VITALS: BP 143/78
== END 2017-04-24 11:18 | disposition home or self-care (01) ==
LOC: EMEROO 14:10 → 3ANU 14:10 → EMEROO 15:13 → SUATTDRO 17:15 → 3ANU 18:00
PROVIDERS: ADMIT Internal Medicine Hematology & Oncology; ATTEND Internal Medicine